=== PATIENT | female | born 1970 | race Caucasian/White ===

== ENCOUNTER 2021-09-19 06:45 | Emergency (ER) | payer BC ==
[~2021-09-19] VITALS: Ht 149.9 cm; Wt 40.0 kg
[2021-09-19 07:10] VITALS: BP 141/90
[2021-09-19 07:15] VITALS: BP 133/82
[2021-09-19 07:30] VITALS: BP 127/81
[2021-09-19 07:45] VITALS: BP 133/80
[2021-09-19] MEDS ORDERED: IBUPROFEN600 MG PO (07:55)
[2021-09-19 08:00] VITALS: BP 142/88
[2021-09-19 08:15] VITALS: BP 142/88
== END 2021-09-19 08:20 | disposition home or self-care (01) | DRG 563 ==
LOC: ED 06:45
DX: S93.402A Sprain of unspecified ligament of left ankle, initial encounter (principal); X50.0XXA Overexertion from strenuous movement or load, initial encounter; Y92.028 Other place in mobile home as the place of occurrence of the external cause